=== PATIENT | female | born 1985 | race Caucasian/White ===

== ENCOUNTER 2023-03-15 10:48 | Emergency (ER) | payer MEDICARE, MEDICAID ==
[2023-03-15 11:50] LABS: BASOPHILS ABSOLUTE AUTO 0.03 K/uL (0.00-0.20); BASOPHILS PERCENT AUTO 0.3 % (0.0-2.0); BILIRUBIN,URINE SMALL (NEGATIVE); COLOR,URINE DARK YELLOW; EOSINOPHILS ABSOLUTE AUTO 0.05 K/uL (0.00-0.50); EOSINOPHILS PERCENT AUTO 0.6 % (0.0-5.0); GLUCOSE,URINE NEGATIVE (NEGATIVE); HEMATOCRIT 47.8 % (34.0-46.0); HEMOGLOBIN 16.8 g/dL (11.7-15.5); KETONES,URINE TRACE mg/dL (NEGATIVE); LEUKOCYTE ESTERASE,URINE NEGATIVE (NEGATIVE); LYMPHOCYTES ABSOLUTE AUTO 2.14 K/uL (0.50-3.50); LYMPHOCYTES PERCENT AUTO 23.7 % (10.0-50.0); MEAN CORPUSCULAR HEMOGLOBIN 31.1 pg (28.2-33.3); MEAN CORPUSCULAR HGB CONC 35.1 g/dL (31.7-36.0); MEAN CORPUSCULAR VOLUME 88.4 fL (84.0-98.0); MONOCYTES ABSOLUTE AUTO 0.72 K/uL (0.00-1.00); NEUTROPHILS PERCENT AUTO 67.4 % (45.0-80.0); NITRITE,URINE NEGATIVE (NEGATIVE); OCCULT BLOOD,URINE NEGATIVE (NEGATIVE); PH,URINE 5.5 (5.0-9.0); PLATELET COUNT,PLT 286 K/uL (150-350); PROTEIN,URINE 30 mg/dL (NEGATIVE); RED BLOOD CELL COUNT 5.41 M/uL (3.77-5.09); RED CELL DISTRIBUTION WIDTH 13.1 % (11.2-14.1); UROBILINOGEN,URINE 0.2 E.U./dL (0.2-1.0)
[2023-03-15] MEDS: Sodium Chloride 0.9% 1,000 ML IV ONE (11:52)
[2023-03-15 12:03] LABS: APPEARANCE,URINE SLIGHTLY CLOUDY; RBC,URINE 0-5 /HPF; WBC,URINE 0-5 /HPF
[2023-03-15 12:04] LABS: EPITHELIAL CELLS,URINE MANY /LPF; MUCUS,URINE MANY /LPF (NEGATIVE)
[2023-03-15 12:07] LABS: AMPHETAMINES SCREEN, URINE NEGATIVE (NEGATIVE); BARBITURATE SCREEN,URINE NEGATIVE (NEGATIVE); BENZODIAZEPINES SCREEN,URINE NEGATIVE (NEGATIVE); COCAINE METABOLITES,URINE NEGATIVE (NEGATIVE); EDDP,URINE SCREEN NEGATIVE (NEGATIVE); METHAMPHETAMINES SCREEN, URINE NEGATIVE (NEGATIVE); TCA SCREEN,URINE NEGATIVE (NEGATIVE); THC SCREEN,URINE 50 NG/ML POSITIVE (NEGATIVE)
[2023-03-15 12:08] LABS: ALANINE AMINOTRANSFERASE,ALT 44 U/L (12-78); ALBUMIN 3.8 g/dL (3.4-5.0); ALKALINE PHOSPHATASE 100 IU/L (46-116); ANION GAP 13.7 meq/L (7-15); ASPARTATE AMNIOTRANSFERASE,AST 25 U/L (15-37); BILIRUBIN TOTAL 0.7 mg/dL (0.2-1.0); BLOOD UREA NITROGEN,BUN 11 mg/dL (7-18); BUPRENORPHINE SCREEN,URINE NEGATIVE (NEGATIVE); CARBON DIOXIDE,CO2 22.3 mmol/L (21.0-32.0); CHLORIDE,CL 103 mmol/L (98-107); CREATININE 1.07 mg/dL (0.51-1.17); ETHANOL BLOOD MEDICAL 0.004 g/dL (0.000-0.080); GLUCOSE RANDOM 156 mg/dL (70-99); OXYCODONE SCREEN,URINE NEGATIVE (NEGATIVE); POTASSIUM,K 3.8 mmol/L (3.5-5.1); SODIUM,NA 139 mmol/L (136-145)
[2023-03-15 12:09] LABS: ESTIMATED GFR 69 mL/min (>=60)
[2023-03-15 13:39] VITALS: BP 110/65; PULSE 68
[2023-03-15] MEDS ORDERED: Sodium Chloride 0.9% 10 ML Syringe FLUSH PRN (13:50)
== END 2023-03-15 13:10 | disposition home or self-care (01) ==
LOC: LL.ED 10:48 → SUPCPDRO 10:48 → LL.ED 13:10
DX: E86.0 Dehydration (principal); J45.909 Unspecified asthma, uncomplicated; E66.9 Obesity, unspecified; Z68.30 Body mass index [BMI] 30.0-30.9, adult; Z88.8 Allergy status to other drugs, medicaments and biological substances; Z88.5 Allergy status to narcotic agent; Z72.0 Tobacco use
CPT/HCPCS: 36415; 80053; 80305-QW; 80307; 81001; 81025; 85025; 96360; 99284; 99284-25; J7030